=== PATIENT | female | born 1970 | race Caucasian/White ===

== ENCOUNTER → 2016-04-20 | Outpatient (CLI) | payer OTHER ==
--- NOTE | 2016-04-20 13:22 | DIAGNOSTIC IMAGING REPORT ---
PROCEDURE: XR KNEE 3 VIEWS BILATERAL INDICATION: LOW BACK PAIN, PAIN IN R KNEE, PAIN IN L KNEE TECHNIQUE: Three views of each knee. COMPARISON: None. FINDINGS: RIGHT KNEE: There is severe narrowing of the lateral joint space compartment with compression fractures involving the tibial plateau. Loose bone fragments are seen on the lateral view. There is also severe patellofemoral degenerative joint disease with the disc space narrowing laterally. LEFT KNEE: There is osteoarthritis with narrowing of the medial joint space compartment. There is also a severe patellofemoral degenerative joint disease with the disc space narrowing laterally. IMPRESSION: 1. Severe bilateral degenerative joint disease.
--- NOTE | 2016-04-20 13:25 | DIAGNOSTIC IMAGING REPORT ---
PROCEDURE: XR LUMBAR SPINE 2 OR 3 VIEWS INDICATION: LOW BACK PAIN, PAIN IN R KNEE, PAIN IN L KNEE TECHNIQUE: Three views. COMPARISON: None. FINDINGS: Osseous structures and disc spaces are normal. No evidence of an acute process or fracture. There is a 6 mm stone in the upper pole right kidney. IMPRESSION: 1. Negative lumbar spine. 2. Right renal stone
== END ==
LOC: XR SRH 12:01
DX: M17.11 Unilateral primary osteoarthritis, right knee (principal)